=== PATIENT | female | born 1975 ===

== ENCOUNTER 2016-07-23 19:10 | Emergency (ER) | payer SELFPAY ==
[2016-07-23 19:10] VITALS: BMI 25.5
[2016-07-23 19:18] VITALS: BP 119/72; PULSE 68; RESP 16; TEMP 98.3; O2SAT 99
--- NOTE | 2016-07-23 19:51 | ED PDOC ---
HPI: Skin/Bite Injury Time Seen by Provider: 07/23/16 19:49 Chief Complaint (Nursing): Abnormal Skin Integrity Chief Complaint (Provider): rash History Per: Patient History/Exam Limitations: no limitations Additional Complaint(s): 40yo f i ED with 2 days of rash to body diffuse with itching, hives. no fever no sick contacts no swelling to extremity. Pt denies change in detergent soaps, foods. no SOB, CPP, swelling LE/UE. Past Medical History Reviewed: Historical Data, Nursing Documentation, Vital Signs Vital Signs: Last Vital Signs Temp 98.3 F 07/23/16 19:14 Pulse 68 07/23/16 19:14 Resp 16 07/23/16 19:14 BP 119/72 07/23/16 19:14 Pulse Ox 99 07/23/16 19:14 - Medical History PMH: No Chronic Diseases - Family History Family History: States: No Known Family Hx - Home Medications Home Medications: Ambulatory Orders Medication Instructions Recorded Multivit/Folic Acid/I 1 tab PO DAILY 05/28/16 [] Docusate [Colace] 200 mg PO HS #30 cap 05/31/16 Ibuprofen [Motrin Tab] 600 mg PO Q6H PRN #30 tab 05/31/16 oxyCODONE/Acetaminophen [Percocet 1 ea PO Q6 #28 tab 05/31/16 5/325 mg Tab] Calamine/Pramoxine [Caladryl] 180 ml TP DAILY #1 bottle 07/23/16 DiphenhydrAMINE [Benadryl] 25 mg PO Q4H #20 cap 07/23/16 Methylprednisolone [Medrol Dose 4 mg PO DAILY #21 mg 07/23/16 Pack (21 tabs)] - Allergies Allergies/Adverse Reactions: Allergies Allergy/AdvReac Type Severity Reaction Status Date / Time No Known Allergies Allergy Verified 07/23/16 19:14 Review of Systems ROS Statement: Except As Marked, All Systems Reviewed And Found Negative Constitutional: Negative for: Fever, Chills Skin: Positive for: Rash Physical Exam - Reviewed Nursing Documentation Reviewed: Yes Vital Signs Reviewed: Yes - Physical Exam Appears: Positive for: Non-toxic, No Acute Distress, Uncomfortable Head Exam: Positive for: ATRAUMATIC, NORMAL INSPECTION, NORMOCEPHALIC Skin: Positive for: Normal Color, Warm, Rash (hives noted diffuse on body with ertyhema) Eye Exam: Positive for: EOMI, Normal appearance, PERRL ENT: Positive for: Normal ENT Inspection Neck: Positive for: Normal, Painless ROM Cardiovascular/Chest: Positive for: Regular Rate, Rhythm Respiratory: Positive for: CNT, Normal Breath Sounds Extremity: Positive for: Normal ROM. Negative for: Swelling Neurologic/Psych: Positive for: Alert, Oriented - ECG O2 Sat by Pulse Oximetry: 99 Medical Decision Making Medical Decision Making: dx: acute allergic reaction will be rx medrol dose pack, caladry and Benadryl advised to f.u with allergy center. Disposition - Clinical Impression Clinical Impression: Allergic reaction - Patient ED Disposition Is Patient to be Admitted: No Counseled Patient/Family Regarding: Diagnosis, Need For Followup, Rx Given - Disposition Referrals: [facility] [Outside] [facility] [Provider Group] Disposition: Routine/Home Disposition Time: 19:51 Condition: STABLE Prescriptions: Calamine/Pramoxine [Caladryl] 180 ml TP DAILY #1 bottle DiphenhydrAMINE [Benadryl] 25 mg PO Q4H #20 cap Methylprednisolone [Medrol Dose Pack (21 tabs)] 4 mg PO DAILY #21 mg Instructions: Urticaria (ED) Print Language: EGYPTIAN
== END 2016-07-23 20:42 | disposition home or self-care (01) ==
LOC: H.ER 19:10
DX: T78.40XA Allergy, unspecified, initial encounter (principal)